=== PATIENT | female | born 1995 | race Caucasian/White ===

== ENCOUNTER 2020-04-12 14:09 | Emergency (ER) | payer MEDICAID ==
[~2020-04-12] VITALS: Ht 162.6 cm; Wt 68.2 kg
[~2020-04-12 14:09] MED LIST: NO HOME MEDS; ONDA4TAB59 PO
[2020-04-12 15:13] LABS: URINE HCG POSITIVE (NEG)
[2020-04-12 15:16] LABS: CLARITY,URINE CLOUDY (Clear); COLOR,URINE YELLOW (Yellow); GLUCOSE, URINE NEGATIVE (Neg); KETONES,URINE TRACE mg/dl (Neg); LEUKOCYTE ESTERASE ,URINE SMALL (Neg); NITRITES, URINE NEGATIVE (Neg); OCCULT BLOOD,URINE LARGE (Neg); PROTEIN,URINE NEGATIVE (Neg); UROBILINOGEN,URINE 0.2 E.U/dL (0.2-1.0)
[2020-04-12 15:19] LABS: UA COLLECTION TYPE CLN CATCH MIDSTREAM
[2020-04-12 15:22] LABS: BACTERIA,URINE 2+ /HPF (Neg); MUCUS STRANDS MODERATE /LPF (Neg); SQUAMOUS EPITHELIAL CELL,UR MANY /LPF (FEW)
[2020-04-12] MEDS ORDERED: acetaminophen 325mg tablet PO ONE (16:25)
[2020-04-12 18:59] VITALS: BP 108/69
== END 2020-04-12 19:00 | disposition home or self-care (01) ==
LOC: ER 14:10
DX: O36.5920 Maternal care for other known or suspected poor fetal growth, second trimester, not applicable or unspecified (principal); R10.31 Right lower quadrant pain; N93.8 Other specified abnormal uterine and vaginal bleeding; Z3A.14 14 weeks gestation of pregnancy; Z98.890 Other specified postprocedural states; Z79.899 Other long term (current) drug therapy
CPT/HCPCS: 36415; 76801; 76817; 81001; 81025; 84702; 99285

== ENCOUNTER 2020-04-30 08:13 | Emergency (ER) | payer MEDICAID ==
[~2020-04-30] VITALS: Ht 162.6 cm; Wt 71.2 kg
[2020-04-30] MEDS ORDERED: acetaminophen 325mg tablet PO ONE (09:20)
[2020-04-30 11:38] VITALS: BP 105/71
== END 2020-04-30 11:40 | disposition home or self-care (01) ==
LOC: ER 08:14
DX: O20.0 Threatened abortion (principal); Z98.891 History of uterine scar from previous surgery; Z79.899 Other long term (current) drug therapy; Z98.890 Other specified postprocedural states; Z3A.09 9 weeks gestation of pregnancy
CPT/HCPCS: 36415; 76801; 84702; 86900; 86901; 99284

== ENCOUNTER 2023-07-18 12:35 | Outpatient (CLI) | payer MEDICAID | END 2023-07-18 23:59 | disposition home or self-care (01) | LOC: RAD 12:35 | PROVIDERS: ATTEND Family Medicine | DX: M25.571 Pain in right ankle and joints of right foot (principal) | CPT/HCPCS: 73610; 73630 ==